=== PATIENT | male | born 2005 | race Asian ===

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

== ENCOUNTER 2024-01-24 17:40 | Emergency (ER) | payer OTHER ==
[~2024-01-24] VITALS: Ht 175.3 cm; Wt 131.8 kg
[~2024-01-24 17:40] MED LIST: IBUP-1492 PO; METH-812 PO
[2024-01-24 17:56] VITALS: TEMP 97.9
[2024-01-24] MEDS: IBUPROFEN 600 MG TABLET PO ONE (21:19)
[2024-01-24 21:21] VITALS: BP 115/76; PULSE 98; RESP 15; O2SAT 99
== END 2024-01-24 21:24 | disposition home or self-care (01) ==
LOC: EMS 17:40
DX: S20.219A Contusion of unspecified front wall of thorax, initial encounter (principal); I10 Essential (primary) hypertension; F17.210 Nicotine dependence, cigarettes, uncomplicated; Y04.0XXA Assault by unarmed brawl or fight, initial encounter; Y93.89 Activity, other specified; Y92.89 Other specified places as the place of occurrence of the external cause; Y99.0 Civilian activity done for income or pay
CPT/HCPCS: 71045; 93005; 99283

== ENCOUNTER 2024-05-07 20:35 | Emergency (ER) | payer OTHER ==
[~2024-05-07] VITALS: Ht 172.7 cm; Wt 135.4 kg
[2024-05-07 21:09] VITALS: TEMP 98.3
[2024-05-08] MEDS: ACETAMINOPHEN 500 MG TABLET PO ONE (01:01)
[2024-05-08] MEDS: IBUPROFEN 400 MG TABLET PO ONE (01:01)
[2024-05-08 02:31] VITALS: BP 150/88; PULSE 99; RESP 18; O2SAT 98
== END 2024-05-08 02:35 | disposition home or self-care (01) ==
LOC: EMS 20:35
DX: S60.212A Contusion of left wrist, initial encounter (principal); I10 Essential (primary) hypertension; X58.XXXA Exposure to other specified factors, initial encounter; Y93.89 Activity, other specified; Y92.89 Other specified places as the place of occurrence of the external cause; Y99.0 Civilian activity done for income or pay
CPT/HCPCS: 99283